=== PATIENT | female | born 2000 | race Caucasian/White ===

== ENCOUNTER 2018-08-07 23:10 | Emergency (ER) | payer OTHER ==
[2018-08-07 23:32] VITALS: BP 144/55; PULSE 85; TEMP 98.9; BMI 17.7
[2018-08-07] MEDS ORDERED: SODIUM CHLORIDE 1,000 ML IV STA (23:44)
--- NOTE | 2018-08-07 23:54 | PDOC ---
History of Present Illness - General Chief Complaint: Pain Stated Complaint: BACK AND ABDOMINAL PAIN Time Seen by Provider: 08/07/18 23:34 History Source: Patient Exam Limitations: No Limitations - History of Present Illness Travel History: No Initial Comments: 08/07/18 23:44 HISTORY OF PRESENT ILLNESS: This is a 17-year-old woman without significant medical history who presents emergency Department with lower abdominal pain radiating to her flank. Patient states the pain started yesterday and is describing as a vague burning pressure sensation. Patient took AZO over-the- counter tablets prior to coming to the hospital and has had relief of lower abdominal pain. Patient was seen and evaluated by her primary doctor today who told her she had "urinary tract infection that is moved to the kidneys." Patient states she was to be prescribed antibiotics, but no prescription was sent to her pharmacy. She denies fevers, chills, nausea, vomiting. No recent travel or sick contacts. PAST MEDICAL HISTORY: Denies past medical history SURGICAL HISTORY: Denies ALLERGIES: cefuroxime REVIEW OF SYSTEMS General/Constitutional: Denies fever or chills. Denies weakness, weight change. HEENT: Denies change in vision. Denies ear pain or discharge. Denies sore throat. Cardiovascular: Denies chest pain or shortness of breath. Respiratory: Denies cough, wheezing, or hemoptysis. Gastrointestinal: Denies nausea, vomiting, diarrhea or constipation. Denies rectal bleeding. Genitourinary: Endorses dysuria, frequency. No change in urination. Reports b/l flank "warmth." Musculoskeletal: Denies joint or muscle swelling or pain. Denies neck or back pain. Skin and breasts: Denies rash or easy bruising. Neurologic: Denies headache, vertigo, loss of consciousness, or loss of sensation. Psychiatric: Denies depression or anxiety. Endocrine: Denies increased thirst. Denies abnormal weight change. Hematologic/Lymphatic: Denies anemia, easy bleeding, or history of blood clots. Allergic/Immunologic: Denies hives or skin allergy. Denies latex allergy. PHYSICAL EXAM General Appearance: Well-appearing, appropriately dressed. No apparent distress , no intoxication. HEENT: EOMI, PERRLA, normal ENT inspection, normal voice, TMs normal, pharynx normal. No conjunctival pallor. No photophobia, scleral icterus. Neck: Supple. Trachea midline. No tenderness, rigidity, carotid bruit, stridor , lymphadenopathy, or thyromegaly. Respiratory/Chest: Lungs CTAB. No shortness of breath, chest tenderness, respiratory distress, accessory muscle use. No crackles, rales, rhonchi, stridor , wheezing, dullness Cardiovascular: RRR. S1, S2. No JVD, murmur, bradycardia, tachycardia. Vascular Pulses: Dorsalis-Pedis (R): 2+, Dorsalis-Pedis (L): 2+ Gastrointestinal/Abdominal: Normal bowel sounds. Abdomen soft, non-distended. No tenderness or rebound tenderness. No organomegaly, pulsatile mass, guarding, hernia, hepatomegaly, splenomegaly. Lymphatic: No adenopathy, tenderness. Musculoskeletal/Extremities: Normal inspection. FROM of all extremities, normal capillary refill. Pelvis Stable. Bilateral CVA tenderness. No tenderness to extremities, pedal edema, swelling, erythema or deformity. Integumentary: Appropriate color, dry, warm. No cyanosis, erythema, jaundice or rash Neurologic: metal roaster II-XII intact. Fully oriented, alert. Appropriate mood/affect. Motor strength 5/5. No appreciable EOM palsy, facial droop or sensory deficit. Past History - Past Medical History Allergies/Adverse Reactions: Allergies Allergy/AdvReac Type Severity Reaction Status Date / Time cefuroxime axetil Allergy Verified 08/07/18 23:23 [From Ceftin] Home Medications: Ambulatory Orders Sertraline HCl [Zoloft -] 75 mg PO DAILY 08/31/16 LORazepam [Ativan] 0.5 mg PO DAILY PRN 08/07/18 Lifitegrast [Xiidra] 1 each OP DAILY 08/07/18 levoFLOXacin [Levaquin] 750 mg PO DAILY #4 tab 08/08/18 COPD: No Psychiatric Problems: Yes (DEPRESION/anxiety) - Immunization History Immunization Up to Date: Yes - Suicide/Smoking/Psychosocial Hx Smoking History: Never smoked Have you smoked in the past 12 months: No Hx Alcohol Use: No Drug/Substance Use Hx: No Substance Use Type: None *Physical Exam - Vital Signs Last Vital Signs Temp Pulse Resp BP Pulse Ox 98.9 F 85 18 144/55 100 08/07/18 23:23 08/07/18 23:23 08/07/18 23:23 08/07/18 23:23 08/07/18 23:23 ED Treatment Course - LABORATORY CBC & Chemistry Diagram: 08/08/18 00:05 08/08/18 00:05 Medical Decision Making - Medical Decision Making 08/07/18 23:54 A/P: 17-year-old female with lower abdominal and bilateral flank pain for one day Bilateral CVA tenderness Normoactive bowel sounds Abdomen soft nontender nondistended. No rebound tenderness noted Symptoms consistent with pyelonephritis. UA, culture, CBC, BMP 08/08/18 02:14 Urinalysis with trace leukoesterase and 52 white cells. BUN/creatinine are within normal limits. No leukocytosis on CBC. Urine testing is consistent with pyelonephritis as patient is ALLERGIC to cefuroxime I will treat the patient with Levaquin 750 mg for 5 days with first dose given here. *DC/Admit/Observation/Transfer Diagnosis at time of Disposition: Pyelonephritis - Discharge Dispostion Disposition: HOME Condition at time of disposition: Fair - Prescriptions Prescriptions: levoFLOXacin [Levaquin] 750 mg PO DAILY #4 tab - Referrals - Patient Instructions Additional Instructions: Rest, drink lots of fluids: Teas, water, soups Avoid contact with others until fevers and symptoms resolved Lots of handwashing and good hygiene Continue [id number] medications for symptomatic relief Tylenol or Motrin for fever and pain Continue all of antibiotics until completed Followup with private physician in one week for repeat urinalysis/reevaluation Return to emergency department for worsened symptoms, fevers, dehydration - Post Discharge Activity
[2018-08-08 00:19] LABS: BASO % 1.3 % (0-2.0); HEMATOCRIT 37.4 % (32.4-45.2); HEMOGLOBIN 12.5 GM/dL (10.7-15.3); LYMPH % 34.6 % (8-40); MCH 27.3 pg (25.7-33.7); MCHC 33.5 g/dl (32.0-36.0); MEAN CELL VOLUME 81.4 fl (80-96); MONO % 7.3 % (3.8-10.2); NEUT % 52.8 % (42.8-82.8); PLATELET COUNT 330 K/MM3 (134-434); RBC 4.59 M/mm3 (3.60-5.2); RDW 13.5 % (11.6-15.6); WHITE BLOOD COUNT 7.1 K/mm3 (4.0-10.0)
[2018-08-08 00:45] LABS: ANION GAP 7 MMOL/L (8-16); BLOOD UREA NITROGEN 11 mg/dL (7-18); CALCIUM 9.1 mg/dL (8.5-10.1); CHLORIDE 100 mmol/L (98-107); CO2 28 mmol/L (21-32); CREATININE 0.7 mg/dL (0.55-1.02); GLUCOSE,RANDOM 91 mg/dL (74-106); POTASSIUM 4.4 mmol/L (3.5-5.1); SODIUM 135 mmol/L (136-145)
[2018-08-08 01:52] LABS: URINE APPEARANCE CLEAR; URINE BILIRUBIN NEGATIVE (<2.0 mg/dL); URINE COLOR AMBER; URINE GLUCOSE (UA) NEGATIVE (NEGATIVE); URINE KETONE NEGATIVE (NEGATIVE); URINE LEUK ESTERASE TRACE (NEGATIVE); URINE NITRITE POSITIVE (NEGATIVE); URINE PROTEIN NEGATIVE (NEGATIVE); URINE UROBILINOGEN 4.0 E.U/dl mg/dL (0.2-1.0)
[2018-08-08 01:58] LABS: EPI CELLS RARE /HPF (FEW); URINE BACTERIA MODERATE /hpf (NONE SEEN); URINE MUCUS RARE
== END 2018-08-08 02:37 | disposition home or self-care (01) ==
LOC: JER 23:10
PROC: 3E0337Z Introduction of Electrolytic and Water Balance Substance into Peripheral Vein, Percutaneous Approach (ICD-10-PCS; principal; 2018-08-07)
DX: N12 Tubulo-interstitial nephritis, not specified as acute or chronic (principal)
CPT/HCPCS: 36415; 80048; 81003; 81015; 84703; 85025; 87086; 96360; 99283-25; J7030

== ENCOUNTER 2019-09-08 21:22 | Emergency (ER) | payer SELFPAY ==
[2019-09-08 21:31] VITALS: BP 134/69; PULSE 101; TEMP 98.4; BMI 17.7
[2019-09-08 22:10] LABS: PH,URINE 5.5 (5.0-8.0); URINE APPEARANCE CLEAR; URINE BILIRUBIN NEGATIVE (NEGATIVE); URINE COLOR YELLOW; URINE GLUCOSE (UA) NEGATIVE (NEGATIVE); URINE KETONE NEGATIVE (NEGATIVE); URINE LEUK ESTERASE NEGATIVE (NEGATIVE); URINE NITRITE NEGATIVE (NEGATIVE); URINE PROTEIN NEGATIVE (NEGATIVE); URINE UROBILINOGEN 0.2 mg/dL (0.2-1.0)
[2019-09-08 22:18] LABS: BASO % 0.7 % (0-2.0); EOS % 2.5 % (0-4.5); HEMATOCRIT 38.4 % (32.4-45.2); HEMOGLOBIN 12.6 GM/dL (10.7-15.3); LYMPH % 14.6 % (8-40); MCH 26.7 pg (25.7-33.7); MCHC 32.8 g/dl (32.0-36.0); MEAN CELL VOLUME 81.4 fl (80-96); MEAN PLT VOLUME 7.8 fl (7.5-11.1); MONO % 7.1 % (3.8-10.2); NEUT % 75.1 % (42.8-82.8); PLATELET COUNT 325 K/MM3 (134-434); RBC 4.71 M/mm3 (3.60-5.2); RDW 14.5 % (11.6-15.6); WHITE BLOOD COUNT 10.2 K/mm3 (4.0-10.0)
[2019-09-08] MEDS ORDERED: FAMOTIDINE 20 MG/50 ML IVPB 20 MG/50 ML MG IVPB ONE ×2 (22:23→22:51)
[2019-09-08] MEDS ORDERED: SODIUM CHLORIDE 0.9% 1000 ML INFUS.BAG IV ONE (22:23)
[2019-09-08] MEDS ORDERED: ACETAMINOPHEN 1000 MG/100 ML VIAL (NON FORMULARY) IVPB ONE (22:23)
[2019-09-08] MEDS ORDERED: ONDANSETRON 4 MG/2 ML VIAL IVPUSH ONE (22:23)
[2019-09-08 22:36] LABS: INR 1.08 (0.83-1.09); PROTHROMBIN TIME (PATIENT) 12.8 SEC (9.7-13.0)
[2019-09-08] MEDS ORDERED: ACETAMINOPHEN INJECTION 100 ML IVPB ONE (22:50)
[2019-09-08] MEDS ORDERED: ONDANSETRON 4 MG/2 ML VIAL ONE (22:51)
[2019-09-08 22:53] LABS: ALBUMIN 3.8 g/dl (3.4-5.0); BILIRUBIN,TOTAL 0.4 mg/dL (0.2-1); BLOOD UREA NITROGEN 9.8 mg/dL (7-18); CALCIUM 8.8 mg/dL (8.5-10.1); CREATININE 0.7 mg/dL (0.55-1.3); POTASSIUM 3.8 mmol/L (3.5-5.1); TOT PROT 7.4 g/dl (6.4-8.2)
--- NOTE | 2019-09-08 23:03 | PDOC ---
Documentation entered by Haritha Bass SCRIBE, acting as scribe for Isa Fu DO. Isa Fu DO: This documentation has been prepared by the Kali holley Adrianna, SCRIBE, under my direction and personally reviewed by me in its entirety. I confirm that the documentation accurately reflects all work, treatment, procedures, and medical decision making performed by me. History of Present Illness - General Chief Complaint: Pain Stated Complaint: APPENDIX PAIN Time Seen by Provider: 09/08/19 22:03 - History of Present Illness Initial Comments: The patient is a 18 year old female, with a significant PMH of depression and anxiety, who presents to the ED for evaluation of URI symptoms and abdominal pain for one week. Patient complains of chills, body aches, runny nose, sore throat and dry cough for the past week. She endorses lower abdominal pain, with one episode of nausea and NBNB vomit. Patient went to Urgent Care for these symptoms, where her strep test was negative and her urine was presumed to be negative as well. She endorses some urinary urgency, but denies dysuria or hematuria. Denies fever, chest pain, SOB, diarrhea, constipation. Allergies: cefuroxim axetil Surgical History: None reported Social History: Denies EtOH, tobacco, or illicit drug use Past History - Past Medical History Allergies/Adverse Reactions: Allergies Allergy/AdvReac Type Severity Reaction Status Date / Time cefuroxime axetil Allergy Verified 09/08/19 21:31 [From Ceftin] Home Medications: Ambulatory Orders Sertraline HCl [Zoloft -] 75 mg PO DAILY 08/31/16 LORazepam [Ativan] 0.5 mg PO DAILY PRN 08/07/18 Lifitegrast [Xiidra] 1 each OP DAILY 08/07/18 COPD: No Psychiatric Problems: Yes (DEPRESSION AND ANXIETY) - Immunization History Immunization Up to Date: Yes - Psycho Social/Smoking Cessation Hx Smoking History: Never smoked Have you smoked in the past 12 months: No Hx Alcohol Use: No Drug/Substance Use Hx: No Substance Use Type: None Review of Systems - Review of Systems Comments:: GENERAL/CONSTITUTIONAL: +Chills. +Body aches. No fever. No weakness. HEAD, EYES, EARS, NOSE AND THROAT: +Runny nose. +Sore throat. No change in vision. No ear pain or discharge. GASTROINTESTINAL: +Lower abdominal pain. +Nausea. +One episode of NBNB vomit. No diarrhea or constipation. GENITOURINARY: +Urgency. No dysuria, frequency. CARDIOVASCULAR: No chest pain or shortness of breath. RESPIRATORY: +Dry cough. No wheezing or hemoptysis. MUSCULOSKELETAL: No joint or muscle swelling or pain. No neck or back pain. SKIN: No rash NEUROLOGIC: No headache, vertigo, loss of consciousness, or change in strength/ sensation. ENDOCRINE: No increased thirst. No abnormal weight change. HEMATOLOGIC/LYMPHATIC: No anemia, easy bleeding, or history of blood clots. ALLERGIC/IMMUNOLOGIC: No hives or skin allergy. *Physical Exam - Vital Signs Last Vital Signs Temp Pulse Resp BP Pulse Ox 98.4 F 101 H 18 134/69 98 09/08/19 21:29 09/08/19 21:29 09/08/19 21:29 09/08/19 21:29 09/08/19 21:29 - Physical Exam Comments: Constitutional: Awake, alert, oriented. No acute distress. Head: Normocephalic. Atraumatic Eyes: PERRL. EOMI. Conjunctivae are not pale. ENT: Mucous membranes are moist and intact. Posterior pharynx without exudates or erythema. Uvula midline. Neck: Supple. Full ROM. No lymphadenopathy. Cardiovascular: Regular rate. Regular rhythm. S1, S2 regular. Distal pulses are 2+ and symmetric. Pulmonary/Chest: No evidence of respiratory distress. Clear to auscultation bilaterally No wheezing, rales or rhonchi. Abdominal: +LLQ tenderness to palpation. +RLQ tenderness to palpation. Soft and non-distended. No rebound, guarding or rigidity. No organomegaly. No palpable masses. Good bowel sounds. Back: No CVA tenderness. Musculoskeletal: No edema. No cyanosis. No clubbing. Full range of motion in all extremities. Nocalf tenderness. Radial/pedal pulses are intact and 2+ bilaterally Skin: Skin is warm and dry. No petechiae. No purpura. Neurological: Alert and oriented to person, place, and time. Cranial nerves II -XII are grossly intact. Normal speech. Strength is grossly symmetric. No sensory deficits. Psychiatric: Good eye contact. Normal interaction, affect and behavior. ED Treatment Course - LABORATORY CBC & Chemistry Diagram: 09/08/19 22:10 09/08/19 22:10 - ADDITIONAL ORDERS Additional order review: Laboratory Results 09/08/19 21:56 Urine Color Yellow Urine Appearance Clear Urine pH 5.5 Ur Specific [place] 1.022 Urine Protein Negative Urine Glucose (UA) Negative Urine Ketones Negative Urine Blood Negative Urine Nitrite Negative Urine Bilirubin Negative Urine Urobilinogen 0.2 Ur Leukocyte Esterase Negative - RADIOLOGY Radiology Studies Ordered: Category Date Time Status ABDOMEN & PELVIS CT WITH CONTR [CT] Stat CT Scan 09/08/19 22:22 Ordered Radiograph Interpretation: EXAM: ABDOMEN \T\ PELVIS CT WITH CONTR HISTORY: Lower abdominal pain FINDINGS: Lung bases are clear. The visualized cardiac chambers are normal size and configuration. Normal liver, gallbladder, pancreas, spleen, adrenal glands and kidneys. The stomach and abdominal small and large bowel are normal. There is no aortic aneurysm. There is no significant retroperitoneal lymphadenopathy. The pelvic small and large bowel are normal. The appendix is normal. The uterus and adnexal structures are normal. Urinary bladder is unremarkable. There is minimal left pelvic free fluid, which may be physiologic. No discrete pelvic lymphadenopathy is identified. IMPRESSION: No localizing signs for acute pathology Reported By: Mason West MD 09/09/2019 02:00 - Medications Given in the ED: ED Medications Discontinued Medications Generic Name Dose Route Start Last Admin Trade Name Freq PRN Reason Stop Dose Admin Acetaminophen 1,000 mg 09/08/19 22:23 09/08/19 22:54 Ofirmev Injection - IVPB 09/08/19 22:24 1,000 mg ONCE ONE Administration Famotidine/Sodium Chloride 20 mg in 50 mls @ 100 mls/hr 09/08/19 22:23 22:54 Pepcid 20 Mg Premixed Ivpb - IVPB 09/08/19 22:52 100 mls/hr ONCE ONE Administration Ondansetron HCl 4 mg 09/08/19 22:23 09/08/19 22:54 Zofran Injection IVPUSH 09/08/19 22:24 4 mg ONCE ONE Administration Sodium Chloride 1,000 ml 09/08/19 22:23 09/08/19 22:50 Normal Saline - IV 09/08/19 22:24 1,000 ml ONCE ONE Administration Medical Decision Making - Medical Decision Making 09/08/19 23:00 a/p: 18yo female with lower abd pain sent from Urgent Care for further eval -pt states FDLMP was 3 weeks ago -seen at Urgent Care and had strep test that was neg and ua that was neg -states n/v and lower abd pain -no fevers -has been taking tylenol at home -sent for R/O appy, however LLQ and RLQ pain, no cva ttp -no dysuria but urgency -no rebound or guarding -will send labs, ua, ucg, ct abd/pelvis with oral and IV contrast -no vaginal complaints -will medicate with ivf hydation, tylenol -will monitor and reassess 09/08/19 23:03 pt drinking po contrast, laughing with her boyfriend at the bedside pt is nontoxic in appearance 09/08/19 23:30 wbc 10 09/09/19 02:09 no acute findings on ct pt tolerated po feels better requesting to go home and eat pancakes discussed all reasons to return to the ED and need for follow up stable for dc to home 09/09/19 02:12 I, Dr. Isa Fu, DO, attest that this document has been prepared under my direction and personally reviewed by me in its entirety. I further attest, that it accurately reflects all work, treatment, procedures and medical decision -making performed by me. Discharge - Discharge Information Problems reviewed: Yes Clinical Impression/Diagnosis: Abdominal pain Condition: Stable Disposition: HOME - Admission No - Follow up/Referral Referrals: Kenny Ward MD [Staff Physician] - - Patient Discharge Instructions Patient Printed Discharge Instructions: DI for Abdominal Pain-Adult Additional Instructions: Please drink plenty of fluids. Please take tylenol or motrin as needed for pain. Please return to the ED with any further concerns or complaints. Please make an appointment to see your PMD in the next 48 hours. - Post Discharge Activity
== END 2019-09-09 02:18 | disposition home or self-care (01) ==
LOC: JER 21:22
PROC: 3E0337Z Introduction of Electrolytic and Water Balance Substance into Peripheral Vein, Percutaneous Approach (ICD-10-PCS; principal; 2019-09-08)
PROC: 3E033NZ Introduction of Analgesics, Hypnotics, Sedatives into Peripheral Vein, Percutaneous Approach (ICD-10-PCS; 2019-09-08)
PROC: 3E033GC Introduction of Other Therapeutic Substance into Peripheral Vein, Percutaneous Approach (ICD-10-PCS; 2019-09-08)
DX: R10.9 Unspecified abdominal pain (principal); Z88.8 Allergy status to other drugs, medicaments and biological substances; F41.8 Other specified anxiety disorders
CPT/HCPCS: 36415; 74177-TC; 80053; 81003; 84703; 85025; 85610; 86850; 86900; 86901; 99283-25; J0131; J7030

== ENCOUNTER 2019-10-13 10:43 | Emergency (ER) | payer OTHER ==
[2019-10-13 10:56] VITALS: TEMP 97.6; BMI 17.7
[2019-10-13] MEDS ORDERED: SODIUM CHLORIDE 1,000 ML IV STA (11:21)
[2019-10-13 11:42] LABS: BASO % 1.3 % (0-2.0); EOS % 6.2 % (0-4.5); HEMATOCRIT 37.4 % (32.4-45.2); HEMOGLOBIN 12.3 GM/dL (10.7-15.3); LYMPH % 35.1 % (8-40); MCH 26.9 pg (25.7-33.7); MEAN CELL VOLUME 81.7 fl (80-96); MEAN PLT VOLUME 8.7 fl (7.5-11.1); MONO % 6.4 % (3.8-10.2); PLATELET COUNT 347 K/MM3 (134-434); RBC 4.58 M/mm3 (3.60-5.2); RDW 14.6 % (11.6-15.6); WHITE BLOOD COUNT 7.2 K/mm3 (4.0-10.0)
--- NOTE | 2019-10-13 12:12 | PDOC ---
Documentation entered by Pedro Shin SCRIBE, acting as scribe for Sourav Bill MD. Sourav Bill MD: This documentation has been prepared by the Aleida holley Nirvannie, SCRIBE, under my direction and personally reviewed by me in its entirety. I confirm that the documentation accurately reflects all work, treatment, procedures, and medical decision making performed by me. History of Present Illness - General Chief Complaint: Syncope/Near Syncope Stated Complaint: Syncope/Near Syncope Time Seen by Provider: 10/13/19 10:58 History Source: Patient, Other (Boyfriend.) Exam Limitations: No Limitations - History of Present Illness Initial Comments: 10/13/19 11:54 The patient is a 19 year old female, with a significant past medical history of depression/anxiety, who presents to the emergency department with syncopal episode. Pt was accompanying her boyfriend who is being evaluated in ED, and while the nurse was speaking to him regarding his care, she began to feel lightheaded and nauseous. She states that hospitals make her very uncomfortable and nervous. She notes attempting to walk to get some air, but she began to feel faint. Pt sat down in a chair and subsequently lost consciousness for approximately 30 seconds - 1 minute. This was witnessed by boyfriend who reports she did not fall to the floor or hit her head. Upon waking up, she states that she feels very jittery but denies any other complaints. Denies ever having CP/SOB/palpitations. She denies a history of anemia, is currently on her period. Her boyfriend denies any convulsions. She denies any confusion upon waking up. She denies recent fevers or chills. She denies recent nausea or vomiting. Allergies: Cefuroxime axetil. Past History - Past Medical History Allergies/Adverse Reactions: Allergies Allergy/AdvReac Type Severity Reaction Status Date / Time cefuroxime axetil Allergy Verified 10/13/19 10:51 [From Ceftin] Home Medications: Ambulatory Orders Sertraline HCl [Zoloft -] 75 mg PO DAILY 08/31/16 Lifitegrast [Xiidra] 1 each OP DAILY 08/07/18 COPD: No Psychiatric Problems: Yes (DEPRESSION AND ANXIETY) - Reproductive History Therapeutic (s) & number: No - Immunization History Immunization Up to Date: Yes - Psycho Social/Smoking Cessation Hx Smoking History: Never smoked Have you smoked in the past 12 months: No Information on smoking cessation initiated: No Hx Alcohol Use: No Drug/Substance Use Hx: No Substance Use Type: None Review of Systems - Review of Systems Able to Perform ROS?: Yes Comments:: 10/13/19 11:55 GENERAL/CONSTITUTIONAL: No fever or chills. No weakness. HEAD, EYES, EARS, NOSE AND THROAT: No change in vision. No ear pain or discharge. No sore throat. CARDIOVASCULAR: + syncope, No chest pain, no shortness of breath RESPIRATORY: No cough, wheezing, or hemoptysis. GASTROINTESTINAL: No nausea, vomiting, diarrhea or constipation. GENITOURINARY: No dysuria, frequency, or change in urination. MUSCULOSKELETAL: No joint or muscle swelling or pain. No neck or back pain. SKIN: No rash NEUROLOGIC: No headache.No vertigo, no change in strength/sensation. ENDOCRINE: No increased thirst. No abnormal weight change. HEMATOLOGIC/LYMPHATIC: No anemia, easy bleeding, or history of blood clots. ALLERGIC/IMMUNOLOGIC: No hives or skin allergy. All Other Systems: Reviewed and Negative *Physical Exam - Vital Signs Last Vital Signs Temp Pulse Resp BP Pulse Ox 97.6 F 66 16 74/58 L 100 10/13/19 10:51 10/13/19 10:51 10/13/19 10:51 10/13/19 10:51 10/13/19 10:51 - Physical Exam Comments: 10/13/19 11:55 GENERAL: Awake, alert, and fully oriented, in no acute distress. HEAD: No signs of trauma EYES: PERRLA, EOMI, sclera anicteric, conjunctiva clear ENT: Auricles normal inspection, hearing grossly normal, nares patent, oropharynx clear without exudates. Moist mucosa NECK: Nontender, no stepoffs, Normal ROM, supple, no lymphadenopathy, JVD, or masses LUNGS: Breath sounds equal, clear to auscultation bilaterally. No wheezes, and no crackles HEART: Regular rate and rhythm, normal S1 and S2, no murmurs, rubs or gallops ABDOMEN: Soft, nontender, normoactive bowel sounds. No guarding, no rebound. No masses EXTREMITIES: Normal range of motion, no edema. No clubbing or cyanosis. No cords, erythema, or tenderness NEUROLOGICAL: Cranial nerves II through XII intact. 5/5 strength and sensation in all extremities, Normal speech, normal gait, normal cerebellar function SKIN: Warm, Dry, normal turgor, no rashes or lesions noted. Heart Score/ECG Review - ECG Impressions Comment:: 10/13/19 12:15 NSR, no VENU/STDs, no TWIs, axis wnl, intervals wnl, rate 69 ED Treatment Course - LABORATORY CBC & Chemistry Diagram: 10/13/19 11:32 10/13/19 11:32 Medical Decision Making - Medical Decision Making 10/13/19 12:15 19 F with syncopal episode in ED. Likely vasovagal. Pt initially hypotensive, but this improved without intervention. Pt now asymptomatic. EKG wnl. - Labs, UPT - IV fluids 10/13/19 12:41 Labs wnl Pt reassessed - continues to feel well Ambulatory in ED with steady gait. Pt is well appearing, with normal vitals. Clinically stable for DC at this time. I discussed the physical exam findings, ancillary test results and final diagnoses with the patient. I answered all of the patient's questions. The patient was satisfied with the care received and felt comfortable with the discharge plan and treatment plan. The patient agrees to follow up with the primary care physician within 24-72 hours. Discharge - Discharge Information Problems reviewed: Yes Clinical Impression/Diagnosis: Syncope Disposition: HOME - Follow up/Referral Referrals: ON STAFF,NOT [Primary Care Provider] - - Patient Discharge Instructions Patient Printed Discharge Instructions: DI for Syncope in Adults (Fainting) Additional Instructions: Your fainting episode today is likely due to "vasovagal syncope", which may be related to stressful events. Even though your bloodwork and EKG were completely normal, you should still follow up with your primary doctor within 48 hours for re-evaluation. There is always a chance that fainting episodes may be related to your heart. If you experience any chest pain, shortness of breath, palpitations, lightheadedness, loss of consciousness, or any other concerning symptoms, return to the ER immediately. - Post Discharge Activity Work/Back to School Note: Back to School
[2019-10-13 12:26] LABS: ALBUMIN 3.6 g/dl (3.4-5.0); ALK PHOS 48 U/L (45-117); ANION GAP 6 MMOL/L (8-16); BILIRUBIN,TOTAL 0.3 mg/dL (0.2-1); BLOOD UREA NITROGEN 12.2 mg/dL (7-18); CALCIUM 8.9 mg/dL (8.5-10.1); CHLORIDE 107 mmol/L (98-107); CO2 25 mmol/L (21-32); CREATININE 0.7 mg/dL (0.55-1.3); GLUCOSE,RANDOM 104 mg/dL (74-106); SGOT/AST 13 U/L (15-37); SGPT/ALT 18 U/L (13-61); SODIUM 137 mmol/L (136-145); TOT PROT 6.9 g/dl (6.4-8.2)
[2019-10-13 12:42] LABS: HYALINE CASTS 6 /lpf (0-8); PH,URINE 7.5 (5.0-8.0); URINE APPEARANCE CLEAR; URINE BACTERIA 19.8 /hpf (NEGATIVE); URINE BILIRUBIN NEGATIVE (NEGATIVE); URINE COLOR YELLOW; URINE GLUCOSE (UA) NEGATIVE (NEGATIVE); URINE KETONE NEGATIVE (NEGATIVE); URINE LEUK ESTERASE NEGATIVE (NEGATIVE); URINE NITRITE NEGATIVE (NEGATIVE); URINE PROTEIN NEGATIVE (NEGATIVE); URINE RBC 1 /hpf (0-4); URINE UROBILINOGEN 0.2 mg/dL (0.2-1.0); URINE WBC 3 /hpf (0-5)
[2019-10-13 12:43] VITALS: BP 114/65; PULSE 82
--- NOTE | 2019-10-14 12:40 | EKG ---
Test Reason : Blood Pressure : / mmHG Vent. Rate : 069 BPM Atrial Rate : 069 BPM P-R Int : 140 ms QRS Dur : 086 ms QT Int : 406 ms P-R-T Axes : 066 073 047 degrees QTc Int : 435 ms NORMAL SINUS RHYTHM WITH SINUS ARRHYTHMIA NORMAL ECG NO PREVIOUS ECGS AVAILABLE Confirmed by GUS MCKEON, FRED ([id number]) on 10/14/2019 12:39:58 PM Referred By: Confirmed By:FRED WEBER MD
== END 2019-10-13 13:48 | disposition home or self-care (01) ==
LOC: JER 10:43
PROC: 3E0337Z Introduction of Electrolytic and Water Balance Substance into Peripheral Vein, Percutaneous Approach (ICD-10-PCS; principal; 2019-10-13)
DX: R55 Syncope and collapse (principal); Z88.8 Allergy status to other drugs, medicaments and biological substances; F41.8 Other specified anxiety disorders
CPT/HCPCS: 36415; 80053; 81003; 82550; 84484; 84703; 85025; 93005; 93010; 96360; 99284-25; J7030